=== PATIENT | male | born 2000 | race Hispanic/Latino ===

== ENCOUNTER 2024-09-10 11:46 | Emergency (ER) | payer SELFPAY ==
[2024-09-10] VITALS (20 sets, daily range): BP systolic 109–126; BP diastolic 63–82
[~2024-09-10] VITALS: Ht 170.2 cm; Wt 84.0 kg
[2024-09-10 13:08] LABS: BASO% 0.2 % (0-3); EOS% 0.1 % (0-8); HEMOGLOBIN 15.9 g/dl (14.0-18.0); IMMATURE GRANULOCYTES 0.3 % (0.0-5.0); LYMPH% 7.9 % (15-41); MEAN CELL VOLUME 91.4 fL CALC (80.0-100.0); MEAN CORPUSCULAR HGB 29.7 pG CALC (26.0-32.0); MEAN CORPUSCULAR HGB CONC 32.4 g/dL CAL (32.0-36.0); MONO% 6.8 % (2-13); NEUT# 12.28 thou/uL (1.82-7.42); NEUT% 84.7 % (42-76); RED BLOOD COUNT 5.36 mill/uL (4.70-6.10); RED CELL DISTRI WIDTH 13.1 % (11.5-15.5)
[2024-09-10 13:28] LABS: ALBUMIN 4.7 g/dL (3.2-5.0); C-REACTIVE PROTEIN 8.1 mg/dL (0-0.9); CREATININE 0.9 mg/dL (0.7-1.3); POTASSIUM 4.3 mmol/l (3.5-5.1); TOTAL PROTEIN 8.4 g/dL (6.3-8.2)
[2024-09-10] MEDS ORDERED: LIDOcaine HCl 1% (Local Anesth.) 20 ML VIAL STI ONE (13:35)
[2024-09-10] MEDS ORDERED: VANCOMYCIN HCL 1 GM in SODIUM CHLORIDE 0.9% 500 ML IV ONE (13:55)
[2024-09-10] MEDS ORDERED: SODIUM CHLORIDE 0.9% 1,000 ML IV ONE (13:55)
[2024-09-10] MEDS ORDERED: VIBRAMYCIN100 M2 PO (14:50)
== END 2024-09-10 17:28 | disposition home or self-care (01) | DRG 603 ==
LOC: ED 11:46
PROVIDERS: Nurse Practitioner
PROC: 0SJC3ZZ Inspection of Right Knee Joint, Percutaneous Approach (ICD-10-PCS; principal; 2024-09-10)
DX: L03.115 Cellulitis of right lower limb (principal)
CPT/HCPCS: J0696; J3370

== ENCOUNTER 2024-09-13 11:00 | Emergency (ER) | payer SELFPAY ==
[~2024-09-13] VITALS: Ht 170.2 cm; Wt 84.0 kg
[2024-09-13] VITALS (8 sets, daily range): BP systolic 102–135; BP diastolic 65–88
[~2024-09-13 11:00] MED LIST: VIBRAMYCIN100 M2 PO
[2024-09-13] MEDS ORDERED: VANCOMYCIN HCL 1 GM in SODIUM CHLORIDE 0.9% 500 ML IV ONE (11:40)
[2024-09-13 11:59] LABS: BASO% 0.2 % (0-3); EOS% 1.2 % (0-8); IMMATURE GRANULOCYTES 0.5 % (0.0-5.0); LYMPH% 17.4 % (15-41); MEAN CELL VOLUME 91.9 fL CALC (80.0-100.0); MEAN CORPUSCULAR HGB 29.9 pG CALC (26.0-32.0); MEAN CORPUSCULAR HGB CONC 32.5 g/dL CAL (32.0-36.0); MONO% 5.2 % (2-13); NEUT# 6.3 thou/uL (1.82-7.42); NEUT% 75.5 % (42-76); RED BLOOD COUNT 4.45 mill/uL (4.70-6.10); RED CELL DISTRI WIDTH 12.6 % (11.5-15.5)
[2024-09-13 12:02] LABS: HEMATOCRIT 40.9 % (39.0-50.0); HEMOGLOBIN 13.3 g/dl (14.0-18.0)
[2024-09-13 12:12] LABS: CREATININE 0.9 mg/dL (0.7-1.3)
== END 2024-09-13 14:29 | disposition short-term general hospital (02) | DRG 558 ==
LOC: ED 11:00
PROVIDERS: Family Medicine
PROC: 0M9N3ZX Drainage of Right Knee Bursa and Ligament, Percutaneous Approach, Diagnostic (ICD-10-PCS; principal; 2024-09-13)
DX: M71.161 Other infective bursitis, right knee (principal); B95.61 Methicillin susceptible Staphylococcus aureus infection as the cause of diseases classified elsewhere
CPT/HCPCS: J0690; J3370